=== PATIENT | male | born 1975 | race Caucasian/White ===

== ENCOUNTER 2018-03-09 20:29 | Emergency (ER) | payer SELFPAY ==
[2018-03-09 21:16] LABS: microscopic required? NO
[2018-03-09 21:35] LABS: UA SPECIFIC GRAVITY 1.015 (1.005-1.035); urine erythrocyte NEGATIVE (NEGATIVE)
[2018-03-09 21:38] LABS: BASOPHIL % 0.4 % (0-2); PLATELET COUNT 269 x10^3mcL (130-400); RED CELL DISTRIBUTION WIDTH 13.2 % (11.5-14.5)
[2018-03-09 21:43] LABS: AMPHETAMINE QUAL UR NONE DETECTED (See below)
[2018-03-09 21:47] LABS: CALCIUM 9.4 mg/dL (8.5-10.1); CARBON DIOXIDE 25.5 mmol/L (21-32); CHLORIDE SERUM 101 mmol/L (98-107); CREATININE SERUM 1.3 mg/dL (0.7-1.3); GFR1 > 60 mL/min; GLUCOSE SERUM 120 mg/dL (74-106); POTASSIUM SERUM 3.4 mmol/L (3.5-5.1); SODIUM SERUM 135 mmol/L (136-145)
[2018-03-09 21:59] LABS: ALBUMIN 4.1 g/dL (3.4-5.0); ALKALINE PHOSPHATASE 69 U/L (46-116); ALT/SGPT 41 U/L (16-63); AST/SGOT 22 U/L (15-37); BILIRUBIN TOTAL 0.3 mg/dL (0.20-1.00); FREE T4 0.95 ng/dL (0.76-1.46); LIPASE 186 IU/L (73-393); TOTAL PROTEIN, SERUM 8.2 g/dL (6.4-8.2)
[2018-03-09 23:58] VITALS: BP 136/75
== END 2018-03-09 23:58 | disposition left against medical advice (07) ==
LOC: ED 20:29
PROVIDERS: Emergency Medicine
DX: R51 Headache (principal); R53.1 Weakness; R10.13 Epigastric pain; R11.0 Nausea
CPT/HCPCS: 84439; J1885; J2765; J7030